=== PATIENT | female | born 2000 | race Caucasian/White ===

== ENCOUNTER 2022-03-16 06:56 | Emergency (ER) | payer OTHER ==
[~2022-03-16] VITALS: Ht 160 cm; Wt 65.8 kg
[2022-03-16 07:01] VITALS: BP 104/64
--- NOTE | 2022-03-16 07:04 | NUR ---
PT TO BED 9
--- NOTE | 2022-03-16 07:04 | NUR ---
PT TO BED 01.
[2022-03-16] MEDS ORDERED: DEXAMETHASONE 4 MG TAB PO ONE (07:20)
[2022-03-16] MEDS ORDERED: FAMOTIDINE 20 MG TAB PO ONE (07:20)
[2022-03-16] MEDS ORDERED: DEC4 PO ×2 (07:27→08:08)
[2022-03-16] MEDS ORDERED: DEC1 PO ×2 (07:27→08:08)
[2022-03-16 07:39] VITALS: BP 104/64
--- NOTE | 2022-03-16 08:47 | NUR ---
Patient discharged with v/s stable at 0821. Written and verbal after care instructions given and explained. Reviwed orders for deamethasone, all questions answered. Patient verbalized understanding. Ambulatory with steady gait. All questions addressed prior to discharge. Advised to follow up with PMD.
== END 2022-03-16 08:05 | disposition home or self-care (01) ==
LOC: MED 06:56
DX: T78.40XA Allergy, unspecified, initial encounter (principal); Z79.899 Other long term (current) drug therapy; X58.XXXA Exposure to other specified factors, initial encounter
CPT/HCPCS: 99283